=== PATIENT | female | born 1995 | race Caucasian/White ===

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

== ENCOUNTER 2017-02-24 15:16 | Emergency (ER) | payer MEDICAID, OTHER ==
[~2017-02-24] VITALS: Ht 162.6 cm; Wt 51.9 kg
[~2017-02-24 15:16] MED LIST: FE FCAP2 PO; MACR100C2 PO; PROM25TA10 PO; vitamin B-12 IM
[2017-02-24 15:18] VITALS: BP 137/62; PULSE 97; RESP 16; TEMP 97.4; O2SAT 97
--- NOTE | 2017-02-24 15:43 | PD ---
HPI Chief Complaint: Cold / Flu Symptoms Time Seen by Provider: 15:39 Travel History International Travel<30 days: No Contact w/Intl Traveler<30days: No Traveled to known affect area: No History of Present Illness HPI 21-year-old female who is 29 weeks presents for evaluation. For 3 days she has had cough, congestion, sore throat and fevers. Maximum temperature 100.4. Symptoms are moderate, no aggravating or alleviating factors. 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 No other complaints at this time. PFSH Past Medical History Anemia: Yes (hematology follows) Tetanus Vaccination: > 5 Years Influenza Vaccination: No ?: LMP: july 28 Social History Alcohol Use: No Tobacco Use: No Substance Use: No Allergies-Medications (Allergen,Severity, Reaction): Coded Allergies: No Known Drug Allergies (Verified Allergy, Unknown, 02/24/17) Reported Meds & Prescriptions Reported Meds & Active Scripts Active Reported Integra Plus (Multi-Vit/Iron-Vit C-A42-Gzdbn Acid) 191-210-0.01-1 mg Cap 1 Mg PO DAILY Review of Systems Except as stated in HPI: all other systems reviewed are Neg Physical Exam Narrative GENERAL: Well-nourished female in no acute distress SKIN: Warm and dry. HEAD: Atraumatic. Normocephalic. EYES: Pupils equal and round. No scleral icterus. No injection or drainage. ENT: No nasal bleeding or discharge. Mucous membranes pink and moist. NECK: Trachea midline. No JVD. CARDIOVASCULAR: Regular rate and rhythm. No murmur appreciated. RESPIRATORY: No accessory muscle use. Clear to auscultation. Breath sounds equal bilaterally. Data Data Last Documented VS Vital Signs Date Time Temp Pulse Resp B/P (MAP) Pulse Ox O2 Delivery O2 Flow Rate FiO2 02/24/17 15:18 97.4 97 16 137/62 (87) 97 Orders Orders Influenzae A/B Antigen (02/24/17 15:21) Group A Rapid Strep Screen (02/24/17 15:42) Strep Culture (Group A) (02/24/17 15:35) MDM Medical Decision Making Medical Screen Exam Complete: Yes Emergency Medical Condition: Yes Medical Record Reviewed: Yes Differential Diagnosis Influenza, pharyngitis, bronchitis, pneumonia Narrative Course 21-year-old female presents with 3 days of upper respiratory symptoms. She appears well. Rapid strep screen and influenza antigen test were performed and are negative. The patient appears to have a viral upper respiratory infection. She is stable for discharge. Diagnosis Primary Impression: Upper respiratory infection Departure Forms: Tests/Procedures, Work Release Enter return to work date: Feb 27, 2017 Additional Instructions: Stay well hydrated well-nourished, get plenty of rest. Wash hands frequently. Take Tylenol as needed. Dosing instructions on bottle. Follow-up with primary care physician and return for any acutely new or worsening symptoms. Med/Other Pt SpecificInfo: No Change to Meds Disposition: 01 DISCHARGE HOME Condition: Stable Caio Sommer Feb 24, 2017 15:43
== END 2017-02-24 16:41 | disposition home or self-care (01) ==
LOC: PHEFT 15:16
DX: O99.513 Diseases of the respiratory system complicating pregnancy, third trimester (principal); J06.9 Acute upper respiratory infection, unspecified; Z3A.29 29 weeks gestation of pregnancy
CPT/HCPCS: 87081; 87804; 87880; 99283

== ENCOUNTER 2017-04-03 12:53 | Emergency (ER) | payer MEDICAID ==
[2017-04-03] VITALS (17 sets, daily range): PULSE 73–88
[~2017-04-03 12:53] MED LIST changes: -MACR100C2 PO; -PROM25TA10 PO; -vitamin B-12 IM
--- NOTE | 2017-04-03 13:26 | PD ---
HPI Chief Complaint 34 weeks and 2 days Dizziness Date Seen: Apr 03, 2017 Time Seen: 13:25 Travel History International Travel<30 Days: No Contact w/Intl Traveler<30Days: No Known Affected Area: No History of Present Illness HPI Pt is a 21 yo at 34 weeks and 2 days . EDC is 05-13-[address] Alexander.previously uncomplicated. Patient reports episodes of dizziness past 2 weeks. Initially brief and self recovering. Since last night , appear to be more frequent and not resolving completely. Last episode at 11:30. Active movements. No loss of consciousness. Reports some palpitations. No vaginal bleeding. No vaginal leaking. Pt denies any fevers or chills, no recent sick contacts. Weeks Gestation: 34 Para: 0 : 1 History Past Medical History Narrative Medical h/o Anemia Medical History: Denies Significant Hx Obstetric History Obstetric History Primigravida Past Surgical History Surgical History: No Previous Surgery Family History Family History: Negative Social History Alcohol Use: No Tobacco Use: No Substance Abuse: Yes (marijuana) Allergies-Medications (Allergen,Severity, Reaction): Coded Allergies: No Known Drug Allergies (Verified Allergy, Unknown, 02/24/17) Home Meds Reported Medications Multi-Vit/Iron-Vit C-C15-Hlgrl Acid (Integra Plus) 191-210-0.01-1 mg Cap, 1 MG PO DAILY 09/24/16 Review of Systems Except as stated in HPI: all other systems reviewed are Neg Physical Exam Narrative GENERAL: Well-nourished, well-developed patient. SKIN: Warm and dry. HEAD: Normocephalic and atraumatic. EYES: No scleral icterus. No injection or drainage. ENT: No nasal drainage noted. Mucous membranes pink. Airway patent. NECK: Supple, trachea midline. No JVD. CARDIOVASCULAR: Regular rate and rhythm without murmurs, gallops, or rubs. RESPIRATORY: Breath sounds equal bilaterally. No accessory muscle use. BREASTS: Bilateral exam showed no masses , no retractions, no nipple discharge. ABDOMEN/GI: Abdomen soft, non-tender, bowel sounds present, no rebound, no guarding Gravid to [34] weeks size Fundal Height: [34] GENITOURINARY: Uterine Contractions: [none] FHT's: Category: [1] Baseline: [130s] Reactive: [-] Variability: [moderate] Decels: [none] EXTREMITIES: No cyanosis or edema. BACK: Nontender without obvious deformity. No CVA tenderness. NEUROLOGICAL: Awake and alert. Motor and sensory grossly within normal limits. Five out of 5 muscle strength in all muscle groups. Normal speech. Data Data Vital Signs Reviewed: Yes MDM Medical Record Reviewed: Yes Plan Pt is a 21 yo c/o worsening dizziness over past 2 weeks. No loss of consciousness. Reports episodic palpitations but none currently. Regular rhythm. BP wnl 120s/70s, pulse 70s status reassuring. Active movements. Admits to recent marijuana exposure. Will check electrolytes,Glucose Glucose 80, hg 11.3. UA possible UTI. will treat with Macrobid 100mg po BID ( #6) 12 lead EKG wnl D/w with Dr Mejía. Discharge home, FU with Dr Alexander next week Diagnosis Diagnosis: Primary Impression: 34 weeks gestation of Additional Impressions: Dizziness UTI (urinary tract infection) Disposition: DISCHARGE HOME Condition: Stable Pacheco Salazar MD Apr 03, 2017 13:26
[2017-04-03 13:52] LABS: HEMOGLOBIN 11.3 GM/DL (11.6-15.3); MEAN CELL VOLUME 81.2 FL (80.0-100.0); MEAN CORPUSCULAR HEMOGLOBIN 27.8 PG (27.0-34.0); MEAN CORPUSCULAR HGB CONC 34.2 % (32.0-36.0); MEAN PLATELET VOLUME 8.7 FL (7.0-11.0); PLATELET COUNT 195 TH/MM3 (150-450); RED BLOOD COUNT 4.07 MIL/MM3 (4.00-5.30); RED CELL DISTRIBUTION WIDTH 13.4 % (11.6-17.2); WHITE BLOOD COUNT 8.8 TH/MM3 (4.0-11.0)
[2017-04-03 13:59] LABS: BACTERIA, URINE MOD /hpf; BILIRUBIN, URINE NEG (NEG); BLOOD, URINE NEG (NEG); GLUCOSE,URINE NEG (NEG); KETONE, URINE NEG (NEG); MUCUS URINE FEW /lpf (OCC); NITRITE,URINE POS (NEG); PH, URINE 6.5 (5.0-8.5); SQUAMOUS EPITHELIAL CELL URINE 6 /hpf (0-5); URINE COLOR YELLOW (YELLW/STRAW); URINE LEUKOCYTE ESTERASE LARGE (NEG)
[2017-04-03 14:04] LABS: ALBUMIN 2.8 GM/DL (3.4-5.0); ALT (GPT) 16 U/L (9-42); AST (GOT) 17 U/L (16-38); BICARBONATE 24.7 MEQ/L (21.0-32.0); BLOOD UREA NITROGEN 7 MG/DL (7-18); CALCIUM 8.8 MG/DL (8.5-10.1); CHLORIDE 106 MEQ/L (98-107); CREATININE 0.57 MG/DL (0.50-1.00); GLOMERULAR FILTRATION RATE 137 ML/MIN (>89); GLUCOSE,RANDOM 80 MG/DL (74-106); SODIUM (NA) 137 MEQ/L (136-145)
[2017-04-03 14:07] LABS: ALKALINE PHOSPHATASE 126 U/L (45-117); TOTAL BILIRUBIN ADULT 0.6 MG/DL (0.2-1.0); TOTAL PROTEIN 6.5 GM/DL (6.4-8.2)
--- NOTE | 2017-04-03 16:31 | EKG ---
Date Performed: 04/03/2017 Time Performed: 14:08:08 PTAGE: 21 years EKG: Sinus rhythm NORMAL ECG NO PREVIOUS TRACING DOCTOR: Beto Sherman Interpretating Date/Time 04/03/2017 16:29:43
== END 2017-04-03 14:52 | disposition home or self-care (01) ==
LOC: HOBED 12:53
DX: O23.43 Unspecified infection of urinary tract in pregnancy, third trimester (principal); R42 Dizziness and giddiness; R00.2 Palpitations; Z3A.34 34 weeks gestation of pregnancy
CPT/HCPCS: 36415; 80053; 81001; 85027; 87086; 93005; 99284

== ENCOUNTER 2017-04-06 10:44 | Emergency (ER) | payer MEDICAID ==
[~2017-04-06] VITALS: Ht 167.6 cm; Wt 53.2 kg
[2017-04-06 11:36] VITALS: BP 119/79; PULSE 78; RESP 18; TEMP 98.3; O2SAT 99
[2017-04-06 12:07] LABS: AUTOMATED NEUTROPHIL # 6.7 TH/MM3 (1.8-7.7); BASOPHIL # 0.1 TH/MM3 (0-0.2); BASOPHIL % 0.7 % (0.0-2.0); EOSINOPHIL # 0.2 TH/MM3 (0-0.4); EOSINOPHIL % 2.1 % (0.0-4.0); HEMATOCRIT 35.2 % (35.0-46.0); HEMOGLOBIN 12.1 GM/DL (11.6-15.3); LYMPH % 22.4 % (9.0-44.0); LYMPHOCYTE # 2.3 TH/MM3 (1.0-4.8); MEAN CELL VOLUME 81.3 FL (80.0-100.0); MEAN CORPUSCULAR HEMOGLOBIN 27.8 PG (27.0-34.0); MEAN CORPUSCULAR HGB CONC 34.2 % (32.0-36.0); MEAN PLATELET VOLUME 9.1 FL (7.0-11.0); MONO % 10.7 % (0.0-8.0); MONOCYTE # 1.1 TH/MM3 (0-0.9); NEUT % 64.1 % (16.0-70.0); PLATELET COUNT 198 TH/MM3 (150-450); RED BLOOD COUNT 4.33 MIL/MM3 (4.00-5.30); RED CELL DISTRIBUTION WIDTH 13.2 % (11.6-17.2); WHITE BLOOD COUNT 10.4 TH/MM3 (4.0-11.0)
[2017-04-06 12:25] LABS: BICARBONATE 22.3 MEQ/L (21.0-32.0); CALCIUM 8.8 MG/DL (8.5-10.1); CREATININE 0.59 MG/DL (0.50-1.00)
[2017-04-06 12:30] VITALS: BP 96/56; PULSE 73; RESP 16; O2SAT 100
[2017-04-06 12:30] LABS: BACTERIA, URINE MANY /hpf; BILIRUBIN, URINE NEG (NEG); BLOOD, URINE NEG (NEG); GLUCOSE,URINE NEG (NEG); KETONE, URINE NEG (NEG); MUCUS URINE FEW /lpf (OCC); NITRITE,URINE POS (NEG); PH, URINE 6.5 (5.0-8.5); SQUAMOUS EPITHELIAL CELL URINE 25 /hpf (0-5); URINE COLOR YELLOW (YELLW/STRAW); URINE LEUKOCYTE ESTERASE LARGE (NEG)
[2017-04-06] MEDS ORDERED: SODIUM CHLOR 0.9% 1000 ML INJ 1,000 ML IV ONE (12:30)
[2017-04-06] MEDS ORDERED: cefTRIAXone INJ 1,000 MG in SODIUM CHLORIDE 0.9% INJ 100 ML IV ONE (12:30)
[2017-04-06] MEDS ORDERED: PRENATAL VITAMIN PO (12:32)
--- NOTE | 2017-04-06 12:37 | PD ---
HPI Chief Complaint: Dizziness Time Seen by Provider: 12:20 Travel History International Travel<30 days: No Contact w/Intl Traveler<30days: No Traveled to known affect area: No History of Present Illness HPI 21-year-old female complains of lightheadedness, generalized malaise and weakness. Patient started having the symptoms about 2 weeks ago. Patient states that the symptom is worse for the past several days. Patient was seen in OB department 3 days ago and was found to be no problem. Patient was found to have UTI. Patient was given prescription for Macrobid. Patient has not filled the prescription. Patient denies any headache. Patient denies any chest pain or shortness of breath. Patient denies abdominal pain. Patient denies any vaginal discharge or bleeding. Patient denies any nausea vomiting diarrhea. PFSH Past Medical History Anemia: Yes (hematology follows) Tetanus Vaccination: Unknown Influenza Vaccination: No ?: Past Surgical History Surgical History: No Previous Surgery Social History Alcohol Use: No Tobacco Use: No Substance Use: Yes (MARIJUANA-QUIT LAST WEEK) Allergies-Medications (Allergen,Severity, Reaction): Coded Allergies: No Known Drug Allergies (Verified Allergy, Unknown, 04/06/17) Reported Meds & Prescriptions Reported Meds & Active Scripts Active Reported [ Vitamin] 1 Tab PO DAILY Integra Plus (Multi-Vit/Iron-Vit C-V63-Etgtx Acid) 191-210-0.01-1 mg Cap 1 Mg PO DAILY Review of Systems General / Constitutional: No: Fever Eyes: No: Visual changes HENT: Positive: Lightheadedness, No: Headaches Cardiovascular: No: Chest Pain or Discomfort Respiratory: No: Shortness of Breath Gastrointestinal: No: Abdominal Pain Genitourinary: No: Dysuria Musculoskeletal: No: Pain Skin: No Rash Neurologic: No: Weakness Psychiatric: No: Depression Endocrine: No: Polydipsia Hematologic/Lymphatic: No: Easy Bruising Physical Exam Narrative GENERAL: Well-nourished, well-developed patient. SKIN: Focused skin assessment warm/dry. HEAD: Normocephalic. EYES: No scleral icterus. No injection or drainage. NECK: Supple, trachea midline. No JVD or lymphadenopathy. CARDIOVASCULAR: Regular rate and rhythm without murmurs, gallops, or rubs. RESPIRATORY: Breath sounds equal bilaterally. No accessory muscle use. GASTROINTESTINAL: Abdomen soft, non-tender, nondistended. MUSCULOSKELETAL: No cyanosis, or edema. BACK: Nontender without obvious deformity. No CVA tenderness. Neurologic exam normal. Data Data Last Documented VS Vital Signs Date Time Temp Pulse Resp B/P (MAP) Pulse Ox O2 Delivery O2 Flow Rate FiO2 04/06/17 12:30 73 16 96/56 (69) 100 Room Air 04/06/17 11:36 98.3 Orders Orders Basic Metabolic Panel (Bmp) (04/06/17 11:38) Complete Blood Count With Diff (04/06/17 11:38) Urinalysis - C+S If Indicated (04/06/17 11:38) Ed Urine Pregnancytest Poc (04/06/17 11:47) Sodium Chlor 0.9% 1000 Ml Inj (Ns 1000 M (04/06/17 12:30) Ceftriaxone Inj (Rocephin Inj) (04/06/17 12:30) Urine Culture (04/06/17 11:50) Labs Laboratory Tests Test 04/06/17 11:50 White Blood Count 10.4 TH/MM3 Red Blood Count 4.33 MIL/MM3 Hemoglobin 12.1 GM/DL Hematocrit 35.2 % Mean Corpuscular Volume 81.3 FL Mean Corpuscular Hemoglobin 27.8 PG Mean Corpuscular Hemoglobin Concent 34.2 % Red Cell Distribution Width 13.2 % Platelet Count 198 TH/MM3 Mean Platelet Volume 9.1 FL Neutrophils (%) (Auto) 64.1 % Lymphocytes (%) (Auto) 22.4 % Monocytes (%) (Auto) 10.7 % Eosinophils (%) (Auto) 2.1 % Basophils (%) (Auto) 0.7 % Neutrophils # (Auto) 6.7 TH/MM3 Lymphocytes # (Auto) 2.3 TH/MM3 Monocytes # (Auto) 1.1 TH/MM3 Eosinophils # (Auto) 0.2 TH/MM3 Basophils # (Auto) 0.1 TH/MM3 CBC Comment DIFF FINAL Differential Comment Urine Color YELLOW Urine Turbidity HAZY Urine pH 6.5 Urine Specific [place] 1.017 Urine Protein TRACE mg/dL Urine Glucose (UA) NEG mg/dL Urine Ketones NEG mg/dL Urine Occult Blood NEG Urine Nitrite POS Urine Bilirubin NEG Urine Urobilinogen LESS THAN 2.0 MG/DL Urine Leukocyte Esterase LARGE Urine RBC 1 /hpf Urine WBC 44 /hpf Urine Squamous Epithelial Cells 25 /hpf Urine Bacteria MANY /hpf Urine Mucus FEW /lpf Microscopic Urinalysis Comment CULTURE INDICATED Blood Urea Nitrogen 7 MG/DL Creatinine 0.59 MG/DL Random Glucose 78 MG/DL Calcium Level 8.8 MG/DL Sodium Level 138 MEQ/L Potassium Level 3.9 MEQ/L Chloride Level 108 MEQ/L Carbon Dioxide Level 22.3 MEQ/L Anion Gap 8 MEQ/L Estimat Glomerular Filtration Rate 131 ML/MIN MDM Medical Decision Making Medical Screen Exam Complete: Yes Emergency Medical Condition: Yes Interpretation(s) 1405 p.m. CBC within normal limits. BMP within normal limits. UA positive WBC and bacteria. Differential Diagnosis Differential diagnosis including dehydration, electrolyte imbalance, UTI. Narrative Course 21-year-old female with lightheadedness and generalized malaise and weakness. Patient is 34 week . Systolic blood pressures in the 90s on standing. Normal saline solution 1 L IV bolus. Rocephin 1 g IV given. Diagnosis Primary Impression: Dehydration Additional Impression: UTI (urinary tract infection) Patient Instructions: General Instructions Additional Instructions: Take antibiotic as directed. Encourage p.o. fluid. Advised patient to eat frequent meals. Follow-up with personal physician. Return if worse. Med/Other Pt SpecificInfo: No Meds Exist/No RX given Disposition: 01 DISCHARGE HOME Condition: Stable Dominic Elias MD Apr 06, 2017 12:37
[2017-04-06 14:22] VITALS: BP 101/64
== END 2017-04-06 14:22 | disposition home or self-care (01) ==
LOC: NEPD 10:44
DX: O99.283 Endocrine, nutritional and metabolic diseases complicating pregnancy, third trimester (principal); E86.0 Dehydration; O23.43 Unspecified infection of urinary tract in pregnancy, third trimester; Z3A.34 34 weeks gestation of pregnancy
CPT/HCPCS: 80048; 81001; 84703; 85025; 87086; 96365; 99284; J0696; J7030

== ENCOUNTER 2017-05-11 05:49 | Emergency (ER) | payer MEDICAID ==
[~2017-05-11] VITALS: Ht 162.6 cm; Wt 54.4 kg
[~2017-05-11 05:49] MED LIST changes: +PRENATAL VITAMIN PO
--- NOTE | 2017-05-11 07:35 | PD ---
HPI Chief Complaint ctxs Date Seen: May 11, 2017 Time Seen: 07:13 Travel History International Travel<30 Days: No Contact w/Intl Traveler<30Days: No Known Affected Area: No History of Present Illness HPI pt. is a 21 y/o @ 39 5/7 weeks present w/ c/o ctxs. pt. states ctxs increased in intensity and freq thruout the night. +FM, no lof/vb. pt. cervix checked and 1/long/high. no change during evaluation period. Weeks Gestation: 39 Para: 0 : 1 History Past Medical History Medical History: Denies Significant Hx Obstetric History Obstetric History Past Surgical History Surgical History: No Previous Surgery Family History Family History: Negative Social History Alcohol Use: No Tobacco Use: No Substance Abuse: No Allergies-Medications (Allergen,Severity, Reaction): Coded Allergies: No Known Drug Allergies (Verified Allergy, Unknown, 05/11/17) Home Meds Reported Medications Multi-Vit/Iron-Vit C-L79-Lfpdx Acid (Integra Plus) 191-210-0.01-1 mg Cap, 1 MG PO DAILY 09/24/16 Review of Systems Except as stated in HPI: all other systems reviewed are Neg Physical Exam Narrative GENERAL: Well-nourished, well-developed patient. SKIN: Warm and dry. HEAD: Normocephalic and atraumatic. EYES: No scleral icterus. No injection or drainage. ENT: No nasal drainage noted. Mucous membranes pink. Airway patent. NECK: Supple, trachea midline. No JVD. CARDIOVASCULAR: Regular rate and rhythm without murmurs, gallops, or rubs. RESPIRATORY: Breath sounds equal bilaterally. No accessory muscle use. ABDOMEN/GI: Abdomen soft, non-tender, bowel sounds present, no rebound, no guarding Gravid GENITOURINARY: Dilatation: 1 Effacement: long Station: high Uterine Contractions: irreg FHT's: category: 1 Reactive:+ Variability: mod EXTREMITIES: No cyanosis or edema. BACK: Nontender without obvious deformity. No CVA tenderness. NEUROLOGICAL: Awake and alert. Motor and sensory grossly within normal limits. Five out of 5 muscle strength in all muscle groups. Normal speech. Data Data Vital Signs Reviewed: Yes Orders Orders Cruller Maker Machine Clear For Discharge (05/11/17 ) MDM Plan pt. not in labor. condition d/w pt. pt. to be d/c to home. all ? answered. f /u as sched. Diagnosis Diagnosis: Primary Impression: 39 weeks gestation of Additional Impression: False labor after 37 weeks of gestation without delivery Disposition: 01 DISCHARGE HOME Holger Meyers Jr., MD May 11, 2017 07:35
== END 2017-05-11 08:11 | disposition home or self-care (01) ==
LOC: HOBED 05:49
DX: O47.1 False labor at or after 37 completed weeks of gestation (principal); Z3A.39 39 weeks gestation of pregnancy
CPT/HCPCS: 59025

== ENCOUNTER 2017-05-12 10:13 | Inpatient (IN) | payer MEDICAID ==
[~2017-05-12] VITALS: Ht 162.6 cm; Wt 54.0 kg
[2017-05-12] VITALS (33 sets, daily range): BP systolic 108–142; BP diastolic 63–93; PULSE 61–170; RESP 18–20; TEMP 97.6–98.2; O2SAT 98
[~2017-05-12 10:13] MED LIST changes: -PRENATAL VITAMIN PO
[2017-05-12] MEDS ORDERED: LACTATED RINGER'S 1000 ML INJ 1,000 ML IV PRN (10:52)
[2017-05-12] MEDS ORDERED: LACTATED RINGER'S 1000 ML INJ 1,000 ML IV SCH (10:52)
[2017-05-12] MEDS ORDERED: LIDOCAINE HCL 1% PF 5 ML AMPULE ONE (10:59)
[2017-05-12] MEDS ORDERED: PENICILLIN G POTASSIUM INJ 5,000,000 UNITS in SODIUM CHLORIDE 0.9% INJ 100 ML IV ONE (11:00)
[2017-05-12] MEDS ORDERED: LIDOCAINE HCL 1% 50 ML VIAL INFIL PRN (11:00)
[2017-05-12] MEDS ORDERED: CITRIC ACID-SODIUM CITRATE LIQ 30 ML UDC PO SCH (11:00)
[2017-05-12] MEDS ORDERED: SODIUM CHLORID 0.9% 500 ML INJ 500 ML IV PRN (11:00)
[2017-05-12] MEDS ORDERED: MINERAL OIL 10 ML VIAL TOPICAL PRN (11:00)
[2017-05-12] MEDS ORDERED: OXYTOCIN 30 UNITS-500ML PREMIX 500 ML IV ONE (11:00)
[2017-05-12] MEDS ORDERED: LIDOCAINE HCL 1% 50 ML VIAL I-DERMAL PRN (11:00)
[2017-05-12] MEDS: PENICILLIN G POTASSIUM INJ 2,500,000 UNITS in SODIUM CHLORIDE 0.9% INJ 100 ML IV SCH ×2 (11:01→15:00)
[2017-05-12] MEDS ORDERED: SODIUM CHLOR 0.9% 1000 ML INJ 1,000 ML IV PRN (11:12)
[2017-05-12 11:25] LABS: AUTOMATED NEUTROPHIL # 12.2 TH/MM3 (1.8-7.7); BASOPHIL # 0.1 TH/MM3 (0-0.2); BASOPHIL % 0.5 % (0.0-2.0); EOSINOPHIL % 0.2 % (0.0-4.0); HEMATOCRIT 37.4 % (35.0-46.0); HEMOGLOBIN 12.1 GM/DL (11.6-15.3); LYMPH % 10.8 % (9.0-44.0); LYMPHOCYTE # 1.6 TH/MM3 (1.0-4.8); MEAN CELL VOLUME 77.4 FL (80.0-100.0); MEAN CORPUSCULAR HEMOGLOBIN 25.1 PG (27.0-34.0); MEAN CORPUSCULAR HGB CONC 32.4 % (32.0-36.0); MEAN PLATELET VOLUME 11.3 FL (7.0-11.0); MONO % 7.1 % (0.0-8.0); MONOCYTE # 1.1 TH/MM3 (0-0.9); NEUT % 81.4 % (16.0-70.0); PLATELET COUNT 209 TH/MM3 (150-450); RED BLOOD COUNT 4.83 MIL/MM3 (4.00-5.30); RED CELL DISTRIBUTION WIDTH 14.8 % (11.6-17.2)
[2017-05-12] MEDS ORDERED: ePHEDrine/NS 25 MG/5 ML SYRINGE ONE (11:28)
[2017-05-12] MEDS ORDERED: fentaNYL 2MCG-BUPIV 0.125% INJ 100 ML ONE (11:28)
[2017-05-12 11:36] LABS: BACTERIA, URINE RARE /hpf; BILIRUBIN, URINE NEG (NEG); BLOOD, URINE SMALL (NEG); GLUCOSE,URINE NEG (NEG); KETONE, URINE NEG (NEG); MUCUS URINE FEW /lpf (OCC); NITRITE,URINE NEG (NEG); PH, URINE 6.5 (5.0-8.5); SQUAMOUS EPITHELIAL CELL URINE 2 /hpf (0-5); TRANSITIONAL EPI CELLS, URINE <1 /hpf; URINE COLOR YELLOW (YELLW/STRAW); URINE LEUKOCYTE ESTERASE MOD (NEG)
--- NOTE | 2017-05-12 11:38 | HHI.HP ---
History & Physical H&P HPI HPI Chief Complaint ctxs Date Seen: May 12, 2017 Time Seen: 11:33 Travel History International Travel<30 Days: No Contact w/Intl Traveler<30Days: No Known Affected Area: No History of Present Illness HPI pt. is a 21 y/o @ 39 6/7 weeks present w/ c/o ctxs. pt. states been having ctxs for a few days and have increased in intensity and freq since. +FM , no lof/vb. when patient checked /100/0, bulging membranes. Weeks Gestation: 39 Para: 0 : 1 Last Menstrual Period: May 12, 2017 History (Limited) History Past Medical History Medical History: Denies Significant Hx Obstetric History Obstetric History Family History Family History: Negative Social History Alcohol Use: No Tobacco Use: No Substance Abuse: No Allergies-Medications Allergies-Medications (Allergen,Severity, Reaction): Coded Allergies: No Known Drug Allergies (Verified Allergy, Unknown, 05/11/17) Home Meds Reported Medications Multi-Vit/Iron-Vit C-C69-Sjqvs Acid (Integra Plus) 191-210-0.01-1 mg Cap, 1 MG PO DAILY 09/24/16 ROS Review of Systems Except as stated in HPI: all other systems reviewed are Neg Physical Exam Physical Exam Vital Signs Date Time Temp Pulse Resp B/P (MAP) Pulse Ox O2 Delivery O2 Flow Rate FiO2 05/12/17 11:05 82 05/12/17 11:00 85 05/12/17 10:55 83 05/12/17 10:45 96 05/12/17 10:40 79 05/12/17 10:35 85 Narrative GENERAL: Well-nourished, well-developed patient. SKIN: Warm and dry. HEAD: Normocephalic and atraumatic. EYES: No scleral icterus. No injection or drainage. ENT: No nasal drainage noted. Mucous membranes pink. Airway patent. NECK: Supple, trachea midline. No JVD. CARDIOVASCULAR: Regular rate and rhythm without murmurs, gallops, or rubs. RESPIRATORY: Breath sounds equal bilaterally. No accessory muscle use. ABDOMEN/GI: Abdomen soft, non-tender, bowel sounds present, no rebound, no guarding Gravid GENITOURINARY: External Genitalia: intact and normal in appearance Dilatation: 9 Effacement: 100 Station: 0 Presentation: cephalic Membranes: intact Uterine Contractions: irreg. FHT's: Category:1 Reactive: + Variability: mod Decels: none EXTREMITIES: No cyanosis or edema. BACK: Nontender without obvious deformity. No CVA tenderness. NEUROLOGICAL: Awake and alert. Motor and sensory grossly within normal limits. Five out of 5 muscle strength in all muscle groups. Normal speech. Data Data Data Vital Signs Reviewed: Yes Orders Orders Ob (2e) Additional Admit Info (05/12/17 10:48) Admit To Inpatient (05/12/17 ) Code Status (05/12/17 10:52) Vital Signs (Adult) .Per protocol (05/12/17 10:52) Heart (05/12/17 10:52) Amnioinfusion (05/12/17 10:52) Urinary Catheter Management .ONCE (05/12/17 10:52) Diet Npo (05/12/17 Lunch) Lactated Ringer's 1000 Ml Inj (Lr 1000 M (05/12/17 10:52) Lactated Ringer's 1000 Ml Inj (Lr 1000 M (05/12/17 10:52) Sodium Chlorid 0.9% 500 Ml Inj (Ns 500 M (05/12/17 11:00) Sodium Chlor 0.9% 1000 Ml Inj (Ns 1000 M (05/12/17 11:12) Lidocaine 1% Inj (50 Ml) (Xylocaine 1% I (05/12/17 11:00) Citric Acid-Sodium Citrate Liq (Bicitra (05/12/17 11:00) Fentanyl Inj (Fentanyl Inj) (05/12/17 11:00) Fentanyl Inj (Fentanyl Inj) (05/12/17 11:00) Penicillin G Potassium Inj (Pfizerpen-G (05/12/17 11:00) Penicillin G Potassium Inj (Pfizerpen-G (05/12/17 15:00) Complete Blood Count With Diff (05/12/17 10:52) Hold Clot (05/12/17 10:52) Abo/Rh Blood Type (05/12/17 10:52) Urinalysis - C+S If Indicated (05/12/17 10:52) Ob/Psych Drug Screen, Urine (05/12/17 10:52) Resp Oxygen Non Rebreathe Mask (05/12/17 ) ^ Epidural / Intrathecal Infus (05/12/17 10:52) Oxytocin 30 Units-500ml Premix (Pitocin (05/12/17 11:00) Lidocaine 1% Inj (50 Ml) (Xylocaine 1% I (05/12/17 11:00) Light Mineral Oil (Muri-Lube Oil) (05/12/17 11:00) Inpatient Certification (05/12/17 ) Lidocaine Pf 1% Inj (Xylocaine-Mpf 1% In (05/12/17 10:59) Fentanyl 2mcg-Bupiv 0.125% Inj (Fentanyl (05/12/17 11:28) Ephedrine/Ns 25 Mg/5 Ml Syr (Ephedrine/N (05/12/17 11:28) Group B Strep: Positive Labs Laboratory Tests Test 05/12/17 10:30 White Blood Count 15.0 Red Blood Count 4.83 Hemoglobin 12.1 Hematocrit 37.4 Mean Corpuscular Volume 77.4 Mean Corpuscular Hemoglobin 25.1 Mean Corpuscular Hemoglobin Concent 32.4 Red Cell Distribution Width 14.8 Platelet Count 209 Mean Platelet Volume 11.3 Neutrophils (%) (Auto) 81.4 Lymphocytes (%) (Auto) 10.8 Monocytes (%) (Auto) 7.1 Eosinophils (%) (Auto) 0.2 Basophils (%) (Auto) 0.5 Neutrophils # (Auto) 12.2 Lymphocytes # (Auto) 1.6 Monocytes # (Auto) 1.1 Eosinophils # (Auto) 0.0 Basophils # (Auto) 0.1 CBC Comment DIFF FINAL Differential Comment MDM MDM Medical Record Reviewed: Yes Plan pt. to be admitted. pcn for gbs proph. fht reassuring. epidural vs fentanyl. expect . Diagnosis Diagnosis: Primary Impression: Uterine contractions during Additional Impression: 39 weeks gestation of Holger Meyers Jr., MD May 12, 2017 11:38
[2017-05-12] MEDS ORDERED: fentaNYL 2MCG-BUPIV 0.125% 100 ML EPIDURAL SCH (12:30)
[2017-05-12] MEDS ORDERED: ePHEDrine/NS 25 MG/5 ML SYRINGE IV PUSH PRN (12:30)
[2017-05-12] MEDS ORDERED: DO NOT ADMINISTER ANTICOAGULANTS PRN (12:30)
[2017-05-12] MEDS ORDERED: NO SYSTEM NARCOTICS PRN (12:30)
--- NOTE | 2017-05-12 13:05 | PD.OB.DELI ---
Weeks gestation: 39 Pt started active labor?: Yes Active labor start date: May 12, 2017 Active labor start time: 13:04 Medical induction of labor?: No Artificial rupture of membrane: No Anesthesia: Epidural Episiotomy: Midline Vaginal Delivery: Normal Presentation: Occiput anterior Nuchal Cord: x1 Delayed cord clamping (45 sec): Yes Infant: Female Delivery date: May 12, 2017 Delivery time: 13:05 One Minute : 8 Five Minute : 9 Weight: 7 Placenta: Spontaneous delivery Laceration: 2 deg Repair: Chromic running Estimated blood loss: 200 Tessa Magallon MD May 12, 2017 13:05
[2017-05-12] MEDS ORDERED: DOCUSATE SODIUM 50 MG/SENNA 8.6 MG TAB PO PRN (13:15)
[2017-05-12] MEDS ORDERED: ONDANSETRON ODT 4 MG TAB PO PRN (13:15)
[2017-05-12] MEDS ORDERED: SODIUM CHLORIDE 0.9% FLUSH 10 ML FLUSH IV FLUSH PRN (13:15)
[2017-05-12] MEDS ORDERED: OXYTOCIN 30 UNITS-500ML PREMIX 500 ML IV SCH (13:15)
[2017-05-12] MEDS ORDERED: BENZOCAINE 20% TOPICAL SPRAY 60 ML CAN TOPICAL PRN (13:15)
[2017-05-12] MEDS ORDERED: ACETAMINOPHEN 325 MG TAB PO PRN (13:15)
[2017-05-12] MEDS ORDERED: ALUMINUM/MAGNESIUM/SIMETH 30 ML CUP PO PRN (13:15)
[2017-05-12] MEDS ORDERED: ZOLPIDEM TARTRATE 5 MG TAB PO PRN (13:15)
[2017-05-12] MEDS: IBUPROFEN 800 MG TAB PO PRN ×2 (14:54→19:08)
[2017-05-12] MEDS: WITCH HAZEL 50%/GLYCERIN 12.5% 40 PAD JAR TOPICAL PRN (14:55)
[2017-05-12] MEDS ORDERED: DIPHTH/TETANUS/ACEL PERTUSSIS (BOOSTER) 0.5 ML VIAL/PFS IM ONE (16:00)
[2017-05-12] MEDS ORDERED: MEASLES, MUMPS, RUBELLA VACCINE 0.5 ML VIAL SQ ONE (16:00)
[2017-05-12] MEDS ORDERED: SODIUM CHLORIDE 0.9% FLUSH 10 ML FLUSH IV FLUSH SCH (21:00)
[2017-05-13] MEDS: IBUPROFEN 800 MG TAB PO PRN ×3 (05:09→21:37)
[2017-05-13 08:00] VITALS: BP 108/68; PULSE 57; RESP 18; TEMP 97.8; O2SAT 99
[2017-05-13] MEDS: WITCH HAZEL 50%/GLYCERIN 12.5% 40 PAD JAR TOPICAL PRN (08:42)
--- NOTE | 2017-05-13 12:31 | HHI.OB ---
Subjective Post Day: 1 Remarks PPD#1, Doing well, no c/o Objective Vitals/I&O Vital Signs Date Time Temp Pulse Resp B/P (MAP) Pulse Ox O2 Delivery O2 Flow Rate FiO2 05/13/17 08:00 97.8 57 18 108/68 (81) 99 05/12/17 20:28 97.8 61 18 116/63 (80) 05/12/17 18:35 97.6 05/12/17 15:48 66 20 109/65 (80) 98 05/12/17 14:30 70 118/69 (85) 05/12/17 14:15 72 118/93 (101) 05/12/17 14:00 63 118/81 (93) 05/12/17 13:45 76 133/80 (97) 05/12/17 13:30 80 116/72 (87) 05/12/17 13:18 98.2 05/12/17 13:15 101 125/72 (89) 05/12/17 13:15 18 05/12/17 13:10 18 05/12/17 13:00 85 121/65 (83) 05/12/17 12:43 18 Objective Remarks GENERAL: Well-nourished, well-developed patient. CARDIOVASCULAR: Regular rate and rhythm without murmurs, gallops, or rubs. RESPIRATORY: Breath sounds equal bilaterally. No accessory muscle use. ABDOMEN/GI: Abdomen soft, non-tender. Fundus: Firm, non-tender at umbilicus. GENITOURINARY: Light to moderate bleeding. EXTREMITIES: No cyanosis or edema, non-tender, without signs of DVT. Medications and IVs Current Medications Medications (Trade) Dose Ordered Sig/Darby Route Start Time Stop Time Status Last Admin Lactated Ringer's 1,000 ml @ 125 mls/hr Q8H IV 05/12/17 10:52 05/12/17 11:55 Lactated Ringer's 1,000 ml @ 3,000 mls/hr Q20M PRN IV 05/12/17 10:52 Sodium Chloride 500 ml @ 1,000 mls/hr ONCE PRN IV 05/12/17 11:00 Sodium Chloride 1,000 ml @ 100 mls/hr Q10H PRN IV 05/12/17 11:12 (Xylocaine 1% Inj (50 ml)) 0.1 ml UNSCH X1 PRN I-DERMAL 05/12/17 11:00 05/15/17 10:59 (Bicitra Liq) 30 ml HORSE GROOMER PO 05/12/17 11:00 05/16/17 10:59 (fentaNYL INJ) 50 mcg Q1H PRN IV PUSH 05/12/17 11:00 (fentaNYL INJ) 100 mcg Q1H PRN IV PUSH 05/12/17 11:00 Penicillin G Potassium 7548889 units/Sodium Chloride 100 ml @ 200 mls/hr Q4H IV 05/12/17 15:00 (Xylocaine 1% Inj (50 ml)) 10 ml UNSCH X1 PRN INFIL 05/12/17 11:00 05/14/17 10:59 (Muri-Lube Oil) 10 ml UNSCH PRN TOPICAL 05/12/17 11:00 05/12/17 12:50 Miscellaneous Information No systemic narcotics to be given except... UNSCH PRN .XX 05/12/17 12:30 05/13/17 12:29 Miscellaneous Information DO NOT ADMINISTER ANY ANTICOAGUL... UNSCH PRN .XX 05/12/17 12:30 05/13/17 12:29 Fentanyl/ Bupivacaine HCl 100 ml @ 0 mls/hr TITRATE EPIDURAL 05/12/17 12:30 05/12/17 12:43 (ePHEDrine/NS 25 MG/5 ML SYR) 10 mg UNSCH PRN IV PUSH 05/12/17 12:30 05/13/17 12:29 (NS Flush) 2 ml BID IV FLUSH 05/12/17 21:00 (NS Flush) 2 ml UNSCH PRN IV FLUSH 05/12/17 13:15 (Tylenol) 650 mg Q4H PRN PO 05/12/17 13:15 (Motrin) 800 mg Q8H PRN PO 05/12/17 13:15 05/13/17 05:09 (Americaine 20% Top Spr) 1 spray Q4H PRN TOPICAL 05/12/17 13:15 05/12/17 14:55 (Tucks Pads) 1 applic QID PRN TOPICAL 05/12/17 13:15 05/13/17 08:42 (Leena-Colace) 2 tab Q12H PRN PO 05/12/17 13:15 (Ambien) 5 mg HS PRN PO 05/12/17 13:15 (Mag-Al Plus Susp Liq) 15 ml Q8H PRN PO 05/12/17 13:15 (Zofran Odt) 4 mg Q6H PRN PO 05/12/17 13:15 Assessment/Plan Assessment and Plan PPD#1; Stable, GBS positive Discharge Planning Routine, plan discharge tomorrow, GBS + Attending Attestation Seen by Rudy Coon MD May 13, 2017 12:31
--- NOTE | 2017-05-13 16:28 | HHI.DCPOC ---
Discharge Care Plan Diagnosis: (1) Normal vaginal delivery (2) 39 weeks gestation of Your Health Problems Are: Vaginal delivery Report Symptoms to Your Doctor -Temperature above 100.5 degrees -Redness, of incision or excessive or foul smelling drainage -Unusual pain or calf pain -Increased vaginal bleeding -Painful or difficulty urinating -Feelings of extreme sadness or anxiety after 2 weeks Goals to Promote Your Health * To prevent worsening of your condition and complications * To maintain your health at the optimal level Directions to Meet Your Goals Take your medications as prescribed Follow your dietary instruction Follow activity as directed Ensure plenty of rest for recovery Drink fluids for hydration Keep your appointments as scheduled Take your immunizations and boosters as scheduled If your symptoms worsen call your PCP, if no PCP go to Urgent Care Center or Emergency Room Smoking is Dangerous to Your Health. Avoid second hand smoke Call the 24-hour crisis hotline for domestic abuse at Mark Mejía MD May 13, 2017 16:28
[2017-05-13 21:04] VITALS: BP 118/75; PULSE 69; RESP 18; TEMP 98.1
[2017-05-14 09:30] VITALS: BP 104/68; PULSE 72; RESP 16; TEMP 98.4
[2017-05-14] MEDS: IBUPROFEN 800 MG TAB PO PRN (09:34)
--- NOTE | 2017-05-14 09:53 | HHI.OB ---
Subjective Post Day: 2 Remarks doing well, prepared for d/c home Objective Vitals/I&O Vital Signs Date Time Temp Pulse Resp B/P (MAP) Pulse Ox O2 Delivery O2 Flow Rate FiO2 05/13/17 21:04 98.1 69 18 118/75 (89) Objective Remarks GENERAL: Well-nourished, well-developed patient. CARDIOVASCULAR: Regular rate and rhythm without murmurs, gallops, or rubs. RESPIRATORY: Breath sounds equal bilaterally. No accessory muscle use. ABDOMEN/GI: Abdomen soft, non-tender. Fundus: Firm, non-tender at umbilicus. GENITOURINARY: Light to moderate bleeding. EXTREMITIES: No cyanosis or edema, non-tender, without signs of DVT. Medications and IVs Current Medications Medications (Trade) Dose Ordered Sig/Darby Route Start Time Stop Time Status Last Admin Lactated Ringer's 1,000 ml @ 125 mls/hr Q8H IV 05/12/17 10:52 05/12/17 11:55 Lactated Ringer's 1,000 ml @ 3,000 mls/hr Q20M PRN IV 05/12/17 10:52 Sodium Chloride 500 ml @ 1,000 mls/hr ONCE PRN IV 05/12/17 11:00 Sodium Chloride 1,000 ml @ 100 mls/hr Q10H PRN IV 05/12/17 11:12 (Xylocaine 1% Inj (50 ml)) 0.1 ml UNSCH X1 PRN I-DERMAL 05/12/17 11:00 05/15/17 10:59 (Bicitra Liq) 30 ml [employer] PO 05/12/17 11:00 05/16/17 10:59 (fentaNYL INJ) 50 mcg Q1H PRN IV PUSH 05/12/17 11:00 (fentaNYL INJ) 100 mcg Q1H PRN IV PUSH 05/12/17 11:00 (Xylocaine 1% Inj (50 ml)) 10 ml UNSCH X1 PRN INFIL 05/12/17 11:00 05/14/17 10:59 (Muri-Lube Oil) 10 ml UNSCH PRN TOPICAL 05/12/17 11:00 05/12/17 12:50 Fentanyl/ Bupivacaine HCl 100 ml @ 0 mls/hr TITRATE EPIDURAL 05/12/17 12:30 05/12/17 12:43 (NS Flush) 2 ml BID IV FLUSH 05/12/17 21:00 (NS Flush) 2 ml UNSCH PRN IV FLUSH 05/12/17 13:15 (Tylenol) 650 mg Q4H PRN PO 05/12/17 13:15 (Motrin) 800 mg Q8H PRN PO 05/12/17 13:15 05/14/17 09:34 (Americaine 20% Top Spr) 1 spray Q4H PRN TOPICAL 05/12/17 13:15 05/12/17 14:55 (Tucks Pads) 1 applic QID PRN TOPICAL 05/12/17 13:15 05/13/17 08:42 (Leena-Colace) 2 tab Q12H PRN PO 05/12/17 13:15 05/13/17 21:36 (Ambien) 5 mg HS PRN PO 05/12/17 13:15 (Mag-Al Plus Susp Liq) 15 ml Q8H PRN PO 05/12/17 13:15 (Zofran Odt) 4 mg Q6H PRN PO 05/12/17 13:15 Assessment/Plan Assessment and Plan 21 yo s/p at 39w 1. PPD #2: meeting milestones, ready for d/c home, discussed precautions , expectations, and restrictions. - Female . Mark Mejía MD May 14, 2017 09:53
== END 2017-05-14 14:38 | disposition home or self-care (01) | DRG 775 ==
LOC: HOBED 10:13 → H2EA 10:54 → H1EA 16:56
PROVIDERS: ADMIT Obstetrics & Gynecology; ATTEND Obstetrics & Gynecology
PROC: 10E0XZZ Delivery of Products of Conception, External Approach (ICD-10-PCS; principal; 2017-05-12)
PROC: 0KQM0ZZ Repair Perineum Muscle, Open Approach (ICD-10-PCS; 2017-05-12)
PROC: 0W8NXZZ Division of Female Perineum, External Approach (ICD-10-PCS; 2017-05-12)
DX: O70.1 Second degree perineal laceration during delivery (principal); Z37.0 Single live birth; O99.824 Streptococcus B carrier state complicating childbirth; Z3A.39 39 weeks gestation of pregnancy; O69.81X0 Labor and delivery complicated by cord around neck, without compression, not applicable or unspecified
CPT/HCPCS: 59025; 80307; 81001; 85025; 86403; 86900; 86901; 87086; 90715; J2540; J2590; J7120